=== PATIENT | male | born 1960 | race Caucasian/White ===

== ENCOUNTER 2020-03-30 09:50 | Day surgery (SDC) | payer OTHER ==
[~2020-03-30] VITALS: Ht 172.7 cm; Wt 83.6 kg
[~2020-03-30 09:50] MED LIST: ASPIRIN 81M81 MG/TA2 PO
[2020-03-30 10:19] VITALS: BP 111/75; PULSE 85; TEMP 97.8
[2020-03-30] MEDS ORDERED: ZOFRAN 4MG T4 MG/TAB PO (10:28)
[2020-03-30] MEDS ORDERED: PROBIOTIC FORMU1 CAP PO (10:29)
[2020-03-30] MEDS ORDERED: XARELTO20 MG PO (10:29)
[2020-03-30] MEDS ORDERED: LIPITOR 40MG TA40 MG PO (10:30)
[2020-03-30] MEDS ORDERED: COLACE 100100 MG/CAP PO (10:30)
[2020-03-30] MEDS ORDERED: LOPRESSOR 225 MG/TAB PO (10:31)
--- NOTE | 2020-03-30 10:33 | NUR ---
TO RM AT [id number]-CALL LIGHT IN REACH AT BEDSIDE.
[2020-03-30 13:30] VITALS: BP 132/86; PULSE 66; TEMP 98.1
--- NOTE | 2020-03-30 13:30 | NUR ---
TO RM 1 PER CART FROM PACU. ALERT ORIENTED X3, TALKING WITH STAFF AND . RECEIVED WATER AND CRACKERS. CLEAN AROUND OSTOMY SITE. VOIDED SCANT AMOUNT IN PACU, WHICH PATIENT C/O BURNING UPON URINATION.
[2020-03-30] MEDS ORDERED: NORCO 325 MG-51 TAB PO (13:43)
[2020-03-30 13:45] VITALS: BP 130/76; PULSE 66
--- NOTE | 2020-03-30 13:45 | NUR ---
ATE 100% AND TOLERATED WELL. PATIENT STATED HE HAD TO VOID. AMBULATED TO BATHROOM AND VOIDED.
--- NOTE | 2020-03-30 14:05 | NUR ---
RECEIVED DISCHARGE INSTRUCTIONS AND VERBALIZED UNDERSTANDING. DISCONTINUED IV AND INT PATIENT GETTING DRESSED.
--- NOTE | 2020-03-30 14:20 | NUR ---
DISCHARGED PER WC BY NURSING STAFF TO PRIVATE CAR IN CARE OF HIS - .
[2020-03-30 14:34] VITALS: BP 132/86; PULSE 70; TEMP 98.8
== END 2020-03-30 14:35 | disposition home or self-care (01) ==
LOC: SDCO 09:50
DX: N13.2 Hydronephrosis with renal and ureteral calculous obstruction (principal); E78.00 Pure hypercholesterolemia, unspecified; I10 Essential (primary) hypertension; G47.33 Obstructive sleep apnea (adult) (pediatric); F43.10 Post-traumatic stress disorder, unspecified; K21.9 Gastro-esophageal reflux disease without esophagitis; K58.9 Irritable bowel syndrome, unspecified; Z79.01 Long term (current) use of anticoagulants; Z88.8 Allergy status to other drugs, medicaments and biological substances; Z90.49 Acquired absence of other specified parts of digestive tract; Z87.891 Personal history of nicotine dependence
CPT/HCPCS: C1769; C2617; J0690; J1100; J2405; J2704; J3010; J7120; Q9967